=== PATIENT | male | born 1965 | race Caucasian/White ===

== ENCOUNTER 2018-02-26 17:47 | Emergency (ER) | payer SELFPAY ==
[2018-02-26 17:48] VITALS: BP 137/80; PULSE 72; RESP 16; TEMP 36.2; BMI 28.8
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
--- NOTE | 2018-02-26 18:06 | ED.DEP ---
ED Disposition - Plan for ED Patient: Chief Complaint: Head Injury Instructions: ED Head Injury Closed, ED Sprain Strain Neck Prescriptions: Naproxen [Naprosyn] 500 mg PO BID PRN #20 tab Cyclobenzaprine [Flexeril] 10 mg PO TID PRN #20 tab PRN Reason: Muscle Spasm Referrals: Giovanny iNx MD [Primary Care Provider] - 5-7 Days
[2018-02-26 18:16] VITALS: RESP 18
== END 2018-02-26 18:21 | disposition home or self-care (01) ==
LOC: ED 18:17
PROVIDERS: Emergency Provider Emergency Medicine
DX: S16.1XXA Strain of muscle, fascia and tendon at neck level, initial encounter (principal); S46.811A Strain of other muscles, fascia and tendons at shoulder and upper arm level, right arm, initial encounter; S09.90XA Unspecified injury of head, initial encounter; M54.2 Cervicalgia; G89.29 Other chronic pain; V50.6XXA Passenger in pick-up truck or van injured in collision with pedestrian or animal in traffic accident, initial encounter; Y93.9 Activity, unspecified; Y92.9 Unspecified place or not applicable
CPT/HCPCS: 99282

== ENCOUNTER 2019-04-28 17:00 | Emergency (ER) | payer SELFPAY ==
[2019-04-28 17:00] VITALS: BP 158/99; PULSE 58; RESP 16; TEMP 35.8; O2SAT 100; BMI 28.8
--- NOTE | 2019-04-28 17:34 | ED.DCSUM_ITS ---
- ER Visit Summary Date of Service: 04/28/19 Chief Complaint: Left eye pain and redness History of Present Illness: The patient is a 53 M presents with pain and redness to his left eye that began yesterday. Patient states the pain feels like it is burning. Patient admits to a foreign body sensation. Patient admits to some photophobia and swelling of his eyelid. Patient admits to some slight increase in tearing but denies any purulent drainage, crusting, or matting. Patient admits to some mild blurred vision out of his left eye. Patient is unsure if there was anything in his eye. Physical Examination: Vital signs are stable. Patient is afebrile. Patient is in no acute distress. Pupils are equal, round, and reactive to light bilaterally. Extraocular muscles are intact. Conjunctiva was injected on the left. Anterior chamber was clear. There is no hyphema. There is a small punctate foreign body over the inferior cornea of the left eye. There is a rust ring noted around it. Funduscopic examination was benign. Cranial nerves II through XII are intact. There are no focal motor or sensory deficits noted. Emergency Department Course and Treatment: Tetracaine and fluorescein dye was applied. Under slit lamp examination, the foreign body was identified and removed with an ophthalmic frederic. The rust ring was removed with some mild residual rust ring. Patient tolerated procedure well. The left eye was irrigated with saline. Patient was given a tetanus booster. Patient was given erythromycin ophthalmic ointment. Patient was instructed to follow-up with ophthalmology in 1 to 2 days. Patient understood and was agreeable with the plan. All questions were answered. Disposition: Discharge home Impression: 1. Foreign body left eye 2. Corneal abrasion This note was generated with [employer] dictation software. It may contain incorrect words, spelling, and punctuation that were not noted in review of the chart prior to signing ED Disposition - Plan for ED Patient: Disposition: Home or Assisted Living Diagnosis: Foreign body of left eye Instructions: CORNEAL FOREIGN BODY, Removed Prescriptions: Erythromycin Ophthalmic 1 applic LEFT EYE TID #1 tube Prescription Printed Referrals: NOT,DEFINED [NON-STAFF] - Jamin Pretty MD [STAFF PHYSICIAN] - 1 Day for another exam
[2019-04-28] MEDS: Fluorescein 1 MG STRIP 1 STRIP OPHTHALMIC (18:13)
[2019-04-28] MEDS: Tetracaine 0.5% Ophthalmic Bottle OPHTHALMIC (18:14)
[2019-04-28] MEDS: Diphth,Pertuss(Acell),Tet Vac 0.5 ML Vial IM (18:39)
[2019-04-28 19:00] VITALS: BP 142/83; PULSE 60; RESP 17; O2SAT 98
== END 2019-04-28 19:01 | disposition home or self-care (01) ==
PROVIDERS: Emergency Provider Emergency Medicine
DX: T15.02XA Foreign body in cornea, left eye, initial encounter (principal); X58.XXXA Exposure to other specified factors, initial encounter; Y93.9 Activity, unspecified; Y92.9 Unspecified place or not applicable
CPT/HCPCS: 90471; 90715; 99283

== ENCOUNTER 2021-04-19 22:26 | Emergency (ER) | payer SELFPAY ==
[2021-04-19 22:27] VITALS: BP 166/98; PULSE 89; RESP 18; TEMP 36; O2SAT 97; BMI 28.0
--- NOTE | 2021-04-19 22:42 | EDS_ITS ---
HPI History of Present Illness Chief Complaint: Lower Extremity Injury Informant: patient Onset/Context/Timing Onset: Days (3) Context: - (Awoke with symptoms) Timing: Continuous Quality of Pain: Aching Location: Left knee anteriorly Current Severity: Mild Maximum Severity: Moderate Worsened by: Walking Relieved by: rest Associated Symptoms Associated Symptoms: Negative for Parasthesia, Weakness and Loss of Funtion Narrative Narrative: Patient states 3 days ago he woke up with entire left knee swelling, anteriorly but also on both sides mostly laterally actually, and difficulty bending it and walking on it with pain. He states over the last couple days the swelling and pain in the knee is gone way down but now the swelling seems to be down in his lower leg and ankle. No history of blood clots. No fevers or chills. No injury. 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 Denies having any popliteal pain or calf pain. PFSH PFSH Medical History no medical history no medical history Home Medications naproxen 500 mg PO BID PRN #20 tab 04/19/21 [Rx Last Taken Unknown] Allergy/AdvReac Type Severity Reaction Status Date / Time No Known Allergies Allergy Verified 04/28/19 17:02 Social History Smoking Status: Never smoker ROS ROS ED Constitutional Constitutional ED: Denies chills or fever(s) Musculoskeletal Musculoskeletal: Reports extremity pain; Denies neck pain Integumentary Denies Abrasions, rash or wounds Neurologic Neurologic: Denies paresthesias or weakness EXAM Physical Exam Const Vital Signs: 04/19/21 22:27 Temperature 96.8 F L Temperature Source Temporal Pulse Rate 89 Respiratory Rate 18 Blood Pressure 166/98 H Blood Pressure Mean 120 Pulse Ox 97 Oxygen Delivery Method Room Air Positive well nourished and well developed General Appearance ED: well developed and NAD Neck full ROM and supple Back/Spine normal ROM and normal to inspection Extremity full ROM, normal capillary refill and no calf tenderness Extremity Narrative: Mild tenderness with boggy swelling anterior to the left patella. No other areas of knee swelling, no effusion. No other areas of knee tenderness. Dependent to this, from the ankle to about nursing home up the lower leg, there is mild edema without signs of cellulitis, abscess. Neuro oriented x3, no focal motor deficits and no sensory deficits noted Sensorium / Orientation: alert Psych mental status grossly normal and thought process normal Skin no wounds Rashes: no rashes MDM MDM MDM Narrative Medical decision making narrative: Venous duplex ultrasound of the left lower extremity was obtained, it is negative for DVT, Serna's cyst, or any other acute abnormality that could be visible. Patient was reassured, this is probably prepatellar bursitis and the swelling has simply gone down his leg with gravity. I see nothing surgical here, it is boggy and tender, and less likely to be infected. I would advise anti-inflammatories, minimizing repetitive trauma, I will give him an Kar wrap and recommend kneepads when he is at work, and give him orthopedics to follow-up with if it does not get better or starts getting worse. He is comfortable with that plan. Discharge Plan Triage Chief Complaint: Lower Extremity Injury ED Provider: Slick Lopez Dx/Rx/DC Orders Clinical Impression: Prepatellar bursitis of left knee Instructions: Understanding Prepatellar Bursitis Prescriptions: New naproxen 500 MG tablet 500 mg PO BID PRN Qty: 20 RF: 0 Primary Care Provider: Care Physician,No Primary Referrals: Timoteo Mauro DO [STAFF PHYSICIAN] - 1 Week if not improving Care Physician,No Primary [Primary Care Provider] - Disposition Disposition: Home, Self Care
--- NOTE | 2021-04-19 22:44 | US_ITS ---
STUDY: VENOUS DOPPLER ULTRASOUND - LEFT LOWER EXTREMITY REASON FOR EXAM: Male, 55 years old. LT LEG SWELLING FROM KNEE DOWN WITH ITCHING TECHNIQUE: Ultrasound evaluation of the deep vein system to include singh-scale imaging and compression was performed. Singh-scale imaging and Doppler sonographic evaluation, including duplex spectral analysis and qualitative color flow sonography, was performed. COMPARISON: None. FINDINGS: Common Femoral Vein: Normal compression, spontaneity and augmentation. Normal color Doppler. Common Femoral Vein/Greater Saphenous Junction: Normal compression, spontaneity and augmentation. Normal color Doppler. Deep Femoral Vein: Normal compression, spontaneity and augmentation. Normal color Doppler. Femoral Proximal: Normal compression, spontaneity and augmentation. Normal color Doppler. Femoral Middle: Normal compression, spontaneity and augmentation. Normal color Doppler. Femoral Distal: Normal compression, spontaneity and augmentation. Normal color Doppler. Popliteal Vein: Normal compression, spontaneity and augmentation. Normal color Doppler. Posterior Tibial Vein: Normal compression, spontaneity and augmentation. Normal color Doppler. Peroneal Vein: Normal compression, spontaneity and augmentation. Normal color Doppler. US/Venous Duplex Imag/Limited/Uni IMPRESSION: Normal venous Doppler ultrasound of the lower extremity. Electronically Signed: Camilo Tirado DO at 23:40 EST Tel , Service support ,
[2021-04-19 23:25] VITALS: PULSE 80; RESP 16; O2SAT 97
== END 2021-04-19 23:30 | disposition home or self-care (01) ==
LOC: ED 23:27
PROVIDERS: Emergency Provider Emergency Medicine; Visit Provider Emergency Medicine
DX: M70.42 Prepatellar bursitis, left knee (principal); Y93.9 Activity, unspecified
CPT/HCPCS: 93971; 99282